=== PATIENT | female | born 1960 | race Caucasian/White ===

== ENCOUNTER 2021-06-07 17:50 | Observation (INO) ==
[2021-06-07] MEDS ORDERED: Naloxone 0.4 MG/ML INJ IVP PRN (21:53)
[2021-06-07] MEDS ORDERED: Ondansetron 4 MG/2 ML VIAL IVP PRN (21:53)
[2021-06-07] MEDS ORDERED: Iron Sucrose Complex 400 MG in 0.9 % Sodium Chloride 250 ML IVPB ONE (23:30)
[2021-06-07 23:41] LABS: Basophils % 0.9 %; Eosinophils # 0.1 K/mcL (0.0-0.6); Eosinophils % 2.5 %; Hematocrit 21.6 % (35.3-44.9); Hemoglobin 6.3 g/dL (11.5-15.4); Immature Granulocytes % 0.3 % (0-4); Mean Corpuscular HGB Conc 29.2 g/dL (31.6-35.5); Mean Platelet Volume 10.4 fL (9.4-12.4); Monocytes # 0.4 K/mcL (0.0-1.3); Monocytes % 13.2 %; Neutrophils # 1.7 K/mcL (1.6-8.9); Platelet Count 257 K/mcL (140-400); Red Cell Distribution Width 19.4 % (11.5-14.5); Segmented Neutrophils % 51.1 %; White Blood Count 3.3 K/mcL (4.3-11.1)
[2021-06-07 23:51] LABS: Alanine Aminotransferase 6 Units/L (7-52); Albumin 3.6 g/dL (3.5-5.7); Albumin/Globulin Ratio 1.6 (1.1-2.2); Alkaline Phosphatase 36 Units/L (34-104); Aspartate Amino Transferase 11 Units/L (13-39); BUN/Creatinine Ratio 28 (6-26); Bilirubin,Total 0.5 mg/dL (0.3-1.0); Blood Urea Nitrogen 19 mg/dL (6-20); Calcium 8.8 mg/dL (8.6-10.3); Carbon Dioxide 24 mEq/L (23-29); Chloride 106 mEq/L (98-107); Globulin 2.2 g/dL (2.4-3.5); Glucose 83 mg/dL (70-105); Osmolality,Calculated 285 (280-300); Potassium 3.5 mEq/L (3.5-5.1); Sodium 137 mEq/L (136-145); Total Protein 5.8 g/dL (6.4-8.9); eGFR For African Americans > 60 (> 60); eGFR For Non-African Americans > 60 (> 60)
[2021-06-08] MEDS ORDERED: 0.9 % Sodium Chloride 250 ML ONE (02:51)
[2021-06-08] MEDS ORDERED: Pantoprazole 40 MG VIAL IVP SCH (06:00)
[2021-06-08 06:37] VITALS: BP 138/60; PULSE 55; TEMP 98.2; O2SAT 98
[2021-06-08 07:00] LABS: Basophils % 0.6 %; Eosinophils # 0.1 K/mcL (0.0-0.6); Eosinophils % 2.7 %; Hematocrit 27.8 % (35.3-44.9); Immature Granulocytes % 0.3 % (0-4); Immature Reticulocyte % 6.4 % (11.0-38.0); Lymphocytes # 0.6 K/mcL (0.6-4.6); Lymphocytes % 18.2 %; Mean Corpuscular HGB Conc 29.5 g/dL (31.6-35.5); Mean Corpuscular Hemoglobin 21.5 pg (28.0-33.3); Mean Platelet Volume 10.2 fL (9.4-12.4); Monocytes # 0.4 K/mcL (0.0-1.3); Monocytes % 11.2 %; Neutrophils # 2.2 K/mcL (1.6-8.9); Nucleated Red Blood Cells 0.9 /100 WBC (0); Platelet Count 264 K/mcL (140-400); Red Blood Count 3.81 M/mcL (3.82-4.97); Red Cell Distribution Width 18.6 % (11.5-14.5); Retculocyte # 0.06 M/mcL (0.05-0.10); Reticulocyte % 1.5 % (1.6-2.8); White Blood Count 3.3 K/mcL (4.3-11.1)
[2021-06-08 07:17] LABS: INR 1.1; Prothrombin Time 11.8 Seconds (9.4-12.1)
[2021-06-08 07:36] LABS: Hemoglobin 8.2 g/dL (11.5-15.4)
[2021-06-08 07:43] LABS: Folate 14.3 ng/mL (3.0-16.0)
[2021-06-08 08:14] LABS: Microcytosis Present (Not Present)
[2021-06-08 08:15] LABS: Hypochromasia Present (Not Present); Platelet Estimate Normal (Normal)
[2021-06-08] MEDS ORDERED: Cyanocobalamin (B-12) 1,000 MCG/ML VIAL IM ONE (08:47)
[2021-06-08] MEDS ORDERED: Multivit/Ca/Min/Fe/FA 1 TAB TABLET PO SCH (09:00)
== END 2021-06-08 12:40 | disposition home or self-care (01) ==
LOC: 2NENU → SUATTDRO 21:18
PROVIDERS: ADMIT Internal Medicine; ATTEND Internal Medicine